=== PATIENT | male | born 1960 | race Hispanic/Latino ===

== ENCOUNTER 2020-10-01 17:57 | Emergency (ER) | payer SELFPAY ==
[~2020-10-01] VITALS: Ht 182.9 cm; Wt 79.4 kg
[2020-10-01 18:42] LABS: BASOPHILS # (AUTO) 0.1 (0.0-0.1); BASOPHILS % 0.8 % (0.0-1.0); EOSINOPHILS # (AUTO) 0.1 (0.0-0.4); HEMATOCRIT 40.7 % (38.2-49.6); HEMOGLOBIN 13.4 g/dL (14.0-18.0); LYMPHOCYTES # (AUTO) 2.9 (1.0-3.2); LYMPHOCYTES % 30.3 % (18.0-39.1); MEAN CORPUSCULAR HEMOGLOBIN 30.7 pg (28-32); MEAN CORPUSCULAR HGB CONC 32.9 g/dL (31-35); MEAN CORPUSCULAR VOLUME 93.3 fL (81-99); MONOCYTES # (AUTO) 0.8 (0.2-0.8); MONOCYTES % 8.2 % (4.4-11.3); NEUTROPHILS # (AUTO) 5.7 (2.1-6.9); NEUTROPHILS % 59.4 % (38.7-80.0); PLATELET COUNT 226 x10e3/uL (140-360); RED BLOOD COUNT 4.36 x10e6/uL (4.3-5.7); RED CELL DISTRIBUTION WIDTH 12.8 % (11.7-14.4)
[2020-10-01 18:52] LABS: INR 0.94; PROTHROMBIN TIME 13.1 seconds (11.9-14.5)
[2020-10-01 19:02] LABS: ALBUMIN 3.9 g/dL (3.5-5.0); ANION GAP 15.5 mmol/L (8-16); CALCIUM 9.4 mg/dL (8.4-10.2); CREATININE, SERUM 1.24 mg/dL (0.72-1.25); POTASSIUM 4.5 mmol/L (3.5-5.1)
[2020-10-01 20:59] VITALS: BP 169/71
== END 2020-10-01 21:02 | disposition home or self-care (01) ==
LOC: ER 19:59
DX: I69.320 Aphasia following cerebral infarction (principal); I10 Essential (primary) hypertension; E11.65 Type 2 diabetes mellitus with hyperglycemia
CPT/HCPCS: 36415; 70450; 80053; 84484; 85025; 85610; 93005; 99284

== ENCOUNTER 2020-10-14 19:09 | Emergency (ER) | payer SELFPAY ==
[~2020-10-14] VITALS: Ht 182.9 cm; Wt 79.4 kg
[2020-10-14 20:13] LABS: BASOPHILS # (AUTO) 0.1 (0.0-0.1); BASOPHILS % 1.1 % (0.0-1.0); EOSINOPHILS # (AUTO) 0.1 (0.0-0.4); EOSINOPHILS % 0.8 % (0.0-6.0); HEMATOCRIT 46.3 % (38.2-49.6); HEMOGLOBIN 15.1 g/dL (14.0-18.0); LYMPHOCYTES # (AUTO) 2.5 (1.0-3.2); LYMPHOCYTES % 26.2 % (18.0-39.1); MEAN CORPUSCULAR HGB CONC 32.6 g/dL (31-35); MEAN CORPUSCULAR VOLUME 95.1 fL (81-99); MONOCYTES # (AUTO) 0.8 (0.2-0.8); MONOCYTES % 8.7 % (4.4-11.3); NEUTROPHILS % 62.9 % (38.7-80.0); PLATELET COUNT 216 x10e3/uL (140-360); RED BLOOD COUNT 4.87 x10e6/uL (4.3-5.7); RED CELL DISTRIBUTION WIDTH 12.8 % (11.7-14.4)
[2020-10-14 20:30] LABS: AMYLASE 145 U/L (25-125); LIPASE 68 U/L (8-78)
[2020-10-14 20:32] LABS: ALANINE AMINOTRANSFERASE 14 IU/L (0-55); ALBUMIN 4.5 g/dL (3.5-5.0); ALBUMIN/GLOBULIN RATIO 1.2 (0.8-2.0); ALKALINE PHOSPHATASE 78 IU/L (40-150); ANION GAP 21.7 mmol/L (8-16); BLOOD UREA NITROGEN 40 mg/dL (7-26); BUN/CREATININE RATIO 30 (6-25); CALCIUM 10.1 mg/dL (8.4-10.2); CARBON DIOXIDE 24 mmol/L (22-29); CHLORIDE 104 mmol/L (98-107); CREATINE KINASE 65 IU/L (30-200); CREATININE, SERUM 1.34 mg/dL (0.72-1.25); EST GLOMERULAR FILTRATION RATE 54 ML/MIN (60-); GLUCOSE 156 mg/dL (74-118); POTASSIUM 4.7 mmol/L (3.5-5.1); SODIUM 145 mmol/L (136-145)
[2020-10-14] MEDS ORDERED: IOPAMIDOL 370 MG/ML 200 ML INFUS..BTL INJ ONE (20:57)
[2020-10-14] MEDS ORDERED: SODIUM CHLORIDE 0.9% 50ML 50 ML ONE (20:57)
[2020-10-14] MEDS ORDERED: SODIUM CHLORIDE 0.9% 1000ML 1,000 ML IV ONE (21:15)
[2020-10-14] MEDS ORDERED: SODIUM CHLORIDE 0.9% 1000ML 1,000 ML ONE (21:21)
[2020-10-14 23:51] LABS: CLARITY,URINE CLEAR (CLEAR); COLOR,URINE YELLOW (YELLOW); LEUKOCYTE ESTERASE ,URINE NEGATIVE (NEGATIVE); NITRITE,URINE NEGATIVE (NEGATIVE)
[2020-10-14 23:52] LABS: KETONES,URINE 1+ (NEGATIVE); PROTEIN,URINE DIPSTICK 2+ (NEGATIVE); URINE UROBILINOGEN 0.2 mg/dL (0.2 - 1)
[2020-10-14 23:53] VITALS: BP 154/96
[2020-10-15] LABS: BACTERIA,URINE RARE /HPF; EPITHELIAL CELLS,URINE FEW /LPF
== END 2020-10-15 | disposition home or self-care (01) ==
LOC: ER 19:45
DX: I69.921 Dysphasia following unspecified cerebrovascular disease (principal); E86.0 Dehydration; R94.31 Abnormal electrocardiogram [ECG] [EKG]; I10 Essential (primary) hypertension; E11.65 Type 2 diabetes mellitus with hyperglycemia
CPT/HCPCS: 36415; 70491; 71260; 74177; 80053; 81001; 82150; 82550; 82553; 83690; 84484; 85025; 99284; J7030; Q9967; 93005

== ENCOUNTER 2021-12-29 22:11 | Emergency (ER) | payer MEDICARE, OTHER ==
[~2021-12-29] VITALS: Ht 182.9 cm; Wt 79.4 kg
== END 2021-12-29 23:27 | disposition home or self-care (01) ==
LOC: ER 22:30
DX: M25.551 Pain in right hip (principal); W22.8XXA Striking against or struck by other objects, initial encounter; Y93.01 Activity, walking, marching and hiking; Y92.89 Other specified places as the place of occurrence of the external cause; I10 Essential (primary) hypertension; E11.9 Type 2 diabetes mellitus without complications; Z86.73 Personal history of transient ischemic attack (TIA), and cerebral infarction without residual deficits; Z95.1 Presence of aortocoronary bypass graft
CPT/HCPCS: 99283

== ENCOUNTER 2022-05-25 11:50 | Inpatient (IN) | payer MEDICARE ==
[~2022-05-25] VITALS: Ht 182.9 cm; Wt 79.4 kg
[2022-05-25 12:38] LABS: BASOPHILS # (AUTO) 0.1 (0.0-0.1); BASOPHILS % 0.5 % (0.0-1.0); EOSINOPHILS # (AUTO) 0.1 (0.0-0.4); EOSINOPHILS % 0.6 % (0.0-6.0); HEMATOCRIT 39.8 % (38.2-49.6); HEMOGLOBIN 12.9 g/dL (14.0-18.0); LYMPHOCYTES # (AUTO) 2.2 (1.0-3.2); LYMPHOCYTES % 14.5 % (18.0-39.1); MEAN CORPUSCULAR HEMOGLOBIN 31.9 pg (28-32); MEAN CORPUSCULAR HGB CONC 32.4 g/dL (31-35); MEAN CORPUSCULAR VOLUME 98.3 fL (81-99); MONOCYTES # (AUTO) 0.8 (0.2-0.8); NEUTROPHILS # (AUTO) 11.9 (2.1-6.9); NEUTROPHILS % 78.3 % (38.7-80.0); PLATELET COUNT 272 x10e3/uL (140-360); RED BLOOD COUNT 4.05 x10e6/uL (4.3-5.7); RED CELL DISTRIBUTION WIDTH 12.3 % (11.7-14.4)
[2022-05-25 12:59] LABS: ALBUMIN 4.3 g/dL (3.5-5.0); ALBUMIN/GLOBULIN RATIO 1.3 (0.8-2.0); ANION GAP 17.2 mmol/L (8-16); CALCIUM 9.9 mg/dL (8.4-10.2); CREATININE, SERUM 1.32 mg/dL (0.72-1.25); POTASSIUM 4.2 mmol/L (3.5-5.1)
[2022-05-25] MEDS ORDERED: DEXTROSE 5%/0.45% SOD CHL 1,000 ML IV ONE (14:45)
[2022-05-25] MEDS ORDERED: Morphine 4mg INJECTION 4 MG/ML INJ IV PRN ×2 (15:15→22:45)
[2022-05-25 15:29] LABS: CLARITY,URINE SL CLOUDY (CLEAR); COLOR,URINE AMBER (YELLOW)
[2022-05-25 15:30] LABS: LEUKOCYTE ESTERASE ,URINE NEGATIVE (NEGATIVE); NITRITE,URINE NEGATIVE (NEGATIVE); PROTEIN,URINE DIPSTICK 2+ (NEGATIVE)
[2022-05-25 15:31] LABS: KETONES,URINE TRACE (NEGATIVE); URINE UROBILINOGEN 0.2 mg/dL (0.2 - 1)
[2022-05-25 15:46] LABS: BACTERIA,URINE MODERATE /HPF; WBC,URINE (MAN) 0-5 /HPF (0-5)
[2022-05-25 15:48] LABS: EPITHELIAL CELLS,URINE FEW /LPF
[2022-05-25 18:22] VITALS: BP 131/94
[2022-05-25 18:32] VITALS: BP 131/94
[2022-05-25 20:00] VITALS: BP 161/97
[2022-05-25] MEDS ORDERED: HEPARIN SOD (PORCINE) 5,000 UNIT/ML VIAL SC ONE (21:00)
[2022-05-25 21:15] VITALS: BP 161/97
[2022-05-25 22:00] LABS: INR 0.99
[2022-05-25] MEDS ORDERED: ACTOS15 MG PO (22:03)
[2022-05-25] MEDS ORDERED: ASPIRIN81 MG PO (22:03)
[2022-05-25] MEDS ORDERED: METFORMIN HCL850 MG PO (22:03)
[2022-05-25] MEDS ORDERED: LEVETIRACETAM500 MG PO (22:04)
[2022-05-25] MEDS ORDERED: CARVEDILOL3.125 MG PO (22:04)
[2022-05-25] MEDS ORDERED: LIPITOR20 MG PO (22:05)
[2022-05-25] MEDS ORDERED: LISINOPRIL5 MG PO (22:05)
[2022-05-25] MEDS ORDERED: CLOPIDOGREL75 MG PO (22:05)
[2022-05-25] MEDS ORDERED: HYDRALAZINE HCL 20 MG/ML VIAL IV PRN (22:45)
[2022-05-25] MEDS ORDERED: METOPROLOL TARTRATE INJ 1 MG/ML VIAL IV PRN (22:45)
[2022-05-25] MEDS ORDERED: DEXTROSE 50% SYRINGE 50 ML IV PRN (22:45)
[2022-05-25] MEDS: INSULIN LISPRO 100 UNIT/1 ML 3ML VIAL SQ SCH (22:45)
[2022-05-25] MEDS: FAMOTIDINE 20 MG/2 ML VIAL IV SCH (23:35)
[2022-05-25] MEDS: METOPROLOL TARTRATE 25 MG TAB PO SCH (23:36)
[2022-05-25] MEDS: SODIUM CHLORIDE 0.45% 1,000 ML IV SCH (23:40)
[2022-05-26] VITALS (7 sets, daily range): BP systolic 111–170; BP diastolic 58–90
[2022-05-26 05:00] LABS: BASOPHILS # (AUTO) 0.1 (0.0-0.1); BASOPHILS % 0.5 % (0.0-1.0); EOSINOPHILS % 0.3 % (0.0-6.0); HEMATOCRIT 34.6 % (38.2-49.6); HEMOGLOBIN 11.8 g/dL (14.0-18.0); LYMPHOCYTES # (AUTO) 2.4 (1.0-3.2); LYMPHOCYTES % 18.8 % (18.0-39.1); MEAN CORPUSCULAR HEMOGLOBIN 31.8 pg (28-32); MEAN CORPUSCULAR HGB CONC 34.1 g/dL (31-35); MEAN CORPUSCULAR VOLUME 93.3 fL (81-99); MONOCYTES # (AUTO) 1.3 (0.2-0.8); MONOCYTES % 10.2 % (4.4-11.3); NEUTROPHILS % 69.6 % (38.7-80.0); PLATELET COUNT 215 x10e3/uL (140-360); RED BLOOD COUNT 3.71 x10e6/uL (4.3-5.7); RED CELL DISTRIBUTION WIDTH 12.5 % (11.7-14.4)
[2022-05-26 05:09] LABS: INR 0.98; PROTHROMBIN TIME 13.9 seconds (11.9-14.5)
[2022-05-26 05:20] LABS: CALCIUM 8.9 mg/dL (8.4-10.2); CREATININE, SERUM 1.08 mg/dL (0.72-1.25)
[2022-05-26] MEDS: METOPROLOL TARTRATE 25 MG TAB PO SCH ×3 (05:45→21:10)
[2022-05-26] MEDS: INSULIN LISPRO 100 UNIT/1 ML 3ML VIAL SQ SCH ×4 (07:30→21:00)
[2022-05-26] MEDS: SODIUM CHLORIDE 0.45% 1,000 ML IV SCH ×2 (08:45→21:11)
[2022-05-26] MEDS: FAMOTIDINE 20 MG/2 ML VIAL IV SCH ×2 (09:19→16:30)
[2022-05-26] MEDS ORDERED: SUGAMMADEX SODIUM 200 MG/2 ML VIAL IV ONE ×2 (12:39→16:03)
[2022-05-26] MEDS ORDERED: ROCURONIUM BROMIDE 10 MG/ML 5ML VIAL IV ONE (12:39)
[2022-05-26] MEDS ORDERED: ONDANSETRON HCL INJ 2MG/ML 2ML 2 MG/ML VIAL ONE (12:39)
[2022-05-26] MEDS ORDERED: SEVOFLURANE INHAL SOLN 250 ML PEN BTL ONE (12:39)
[2022-05-26] MEDS ORDERED: LIDOCAINE HCL 2% LOCAL INJ 5 ML SDV VIAL INJ ONE (12:39)
[2022-05-26] MEDS ORDERED: PROPOFOL IV EMULSION 10 MG/ML 20 ML VIAL ONE (12:39)
[2022-05-26] MEDS ORDERED: FENTANYL CITRATE/PF 100MCG/2 ML INJ ONE ×2 (13:15→20:14)
[2022-05-26] MEDS ORDERED: MIDAZOLAM HCL 2 MG/2 ML VIAL ONE (13:15)
[2022-05-26] MEDS ORDERED: ROPIVACAINE 246.25 MG, EPINEPHRINE HCL 1:1000 1ML 0.5 MG, CLONIDINE HCL 0.08 MG, KETORO... INJ ONE ×5 (14:30)
[2022-05-26] MEDS ORDERED: TRANEXAMIC ACID 20 ML ONE (14:51)
[2022-05-26] MEDS ORDERED: Vancomycin IV 1 GM VIAL ONE ×2 (14:51→18:42)
[2022-05-26] MEDS ORDERED: Vancomycin IV 500 MG ONE ×2 (14:51→19:10)
[2022-05-26] MEDS ORDERED: SODIUM CHLORIDE 0.9% 250ML 250 ML ONE (15:51)
[2022-05-27] VITALS (7 sets, daily range): BP systolic 96–135; BP diastolic 51–69
[2022-05-27] MEDS: SODIUM CHLORIDE 0.45% 1,000 ML IV SCH (04:00)
[2022-05-27 05:35] LABS: BASOPHILS # (AUTO) 0.1 (0.0-0.1); BASOPHILS % 0.4 % (0.0-1.0); EOSINOPHILS % 0.3 % (0.0-6.0); HEMOGLOBIN 10.7 g/dL (14.0-18.0); LYMPHOCYTES # (AUTO) 1.4 (1.0-3.2); LYMPHOCYTES % 11.9 % (18.0-39.1); MEAN CORPUSCULAR HEMOGLOBIN 31.6 pg (28-32); MEAN CORPUSCULAR HGB CONC 33.4 g/dL (31-35); MEAN CORPUSCULAR VOLUME 94.4 fL (81-99); MONOCYTES # (AUTO) 1.2 (0.2-0.8); MONOCYTES % 10.4 % (4.4-11.3); NEUTROPHILS # (AUTO) 9.2 (2.1-6.9); NEUTROPHILS % 76.4 % (38.7-80.0); PLATELET COUNT 180 x10e3/uL (140-360); RED BLOOD COUNT 3.39 x10e6/uL (4.3-5.7); RED CELL DISTRIBUTION WIDTH 12.7 % (11.7-14.4)
[2022-05-27] MEDS: METOPROLOL TARTRATE 25 MG TAB PO SCH ×3 (05:52→22:44)
[2022-05-27 05:53] LABS: CALCIUM 8.1 mg/dL (8.4-10.2); CREATININE, SERUM 1.15 mg/dL (0.72-1.25)
[2022-05-27] MEDS: ASPIRIN 325 MG TAB PO SCH (09:25)
[2022-05-27] MEDS: FAMOTIDINE 20 MG/2 ML VIAL IV SCH ×2 (09:26→17:27)
[2022-05-27] MEDS: INSULIN LISPRO 100 UNIT/1 ML 3ML VIAL SQ SCH ×4 (10:22→20:36)
[2022-05-27] MEDS: SENNA-S TABLET PO SCH (17:27)
[2022-05-27] MEDS: POLYETHYLENE GLYCOL 3350 17 GM PACK PO SCH (17:27)
[2022-05-28] VITALS (8 sets, daily range): BP systolic 100–155; BP diastolic 62–73
[2022-05-28 06:09] LABS: BASOPHILS # (AUTO) 0.1 (0.0-0.1); BASOPHILS % 0.6 % (0.0-1.0); EOSINOPHILS % 0.2 % (0.0-6.0); HEMATOCRIT 29.5 % (38.2-49.6); HEMOGLOBIN 9.9 g/dL (14.0-18.0); LYMPHOCYTES # (AUTO) 1.9 (1.0-3.2); LYMPHOCYTES % 21.1 % (18.0-39.1); MEAN CORPUSCULAR HEMOGLOBIN 31.7 pg (28-32); MEAN CORPUSCULAR HGB CONC 33.6 g/dL (31-35); MEAN CORPUSCULAR VOLUME 94.6 fL (81-99); MONOCYTES # (AUTO) 1.2 (0.2-0.8); MONOCYTES % 13.7 % (4.4-11.3); NEUTROPHILS # (AUTO) 5.8 (2.1-6.9); PLATELET COUNT 163 x10e3/uL (140-360); RED BLOOD COUNT 3.12 x10e6/uL (4.3-5.7); RED CELL DISTRIBUTION WIDTH 12.8 % (11.7-14.4)
[2022-05-28] MEDS: METOPROLOL TARTRATE 25 MG TAB PO SCH ×3 (06:14→21:39)
[2022-05-28 06:29] LABS: ANION GAP 14.7 mmol/L (8-16); CALCIUM 8.4 mg/dL (8.4-10.2); CREATININE, SERUM 1.24 mg/dL (0.72-1.25); POTASSIUM 3.7 mmol/L (3.5-5.1)
[2022-05-28] MEDS: INSULIN LISPRO 100 UNIT/1 ML 3ML VIAL SQ SCH ×4 (07:30→21:37)
[2022-05-28] MEDS: FAMOTIDINE 20 MG/2 ML VIAL IV SCH ×2 (07:30→16:42)
[2022-05-28] MEDS: ASPIRIN 325 MG TAB PO SCH (09:45)
[2022-05-28] MEDS: SENNA-S TABLET PO SCH ×2 (09:45→16:42)
[2022-05-28] MEDS: POLYETHYLENE GLYCOL 3350 17 GM PACK PO SCH ×2 (09:45→16:42)
[2022-05-29] VITALS (7 sets, daily range): BP systolic 107–145; BP diastolic 62–76
[2022-05-29] MEDS: METOPROLOL TARTRATE 25 MG TAB PO SCH ×3 (06:01→21:23)
[2022-05-29] MEDS: SENNA-S TABLET PO SCH ×2 (10:03→17:00)
[2022-05-29] MEDS: POLYETHYLENE GLYCOL 3350 17 GM PACK PO SCH ×2 (10:03→17:00)
[2022-05-29] MEDS: FAMOTIDINE 20 MG/2 ML VIAL IV SCH ×2 (10:03→17:34)
[2022-05-29] MEDS: ASPIRIN 325 MG TAB PO SCH (10:03)
[2022-05-29] MEDS: INSULIN LISPRO 100 UNIT/1 ML 3ML VIAL SQ SCH ×4 (11:05→21:29)
[2022-05-29] MEDS: ENOXAPARIN SOD INJ 40 MG/0.4 ML SYR SC SCH (17:33)
[2022-05-30] VITALS (8 sets, daily range): BP systolic 110–138; BP diastolic 55–81
[2022-05-30 05:34] LABS: BASOPHILS % 0.5 % (0.0-1.0); EOSINOPHILS # (AUTO) 0.3 (0.0-0.4); EOSINOPHILS % 3.9 % (0.0-6.0); LYMPHOCYTES # (AUTO) 1.7 (1.0-3.2); LYMPHOCYTES % 20.3 % (18.0-39.1); MEAN CORPUSCULAR HEMOGLOBIN 31.5 pg (28-32); MEAN CORPUSCULAR HGB CONC 32.3 g/dL (31-35); MEAN CORPUSCULAR VOLUME 97.8 fL (81-99); MONOCYTES # (AUTO) 1.1 (0.2-0.8); MONOCYTES % 12.7 % (4.4-11.3); NEUTROPHILS # (AUTO) 5.3 (2.1-6.9); NEUTROPHILS % 62.2 % (38.7-80.0); PLATELET COUNT 217 x10e3/uL (140-360); RED BLOOD COUNT 3.17 x10e6/uL (4.3-5.7); RED CELL DISTRIBUTION WIDTH 11.7 % (11.7-14.4)
[2022-05-30 06:02] LABS: ANION GAP 14.4 mmol/L (8-16); POTASSIUM 3.4 mmol/L (3.5-5.1)
[2022-05-30] MEDS: METOPROLOL TARTRATE 25 MG TAB PO SCH ×3 (06:15→22:09)
[2022-05-30] MEDS: POLYETHYLENE GLYCOL 3350 17 GM PACK PO SCH ×2 (08:59→16:35)
[2022-05-30] MEDS: SENNA-S TABLET PO SCH ×2 (08:59→16:34)
[2022-05-30] MEDS: ASPIRIN 325 MG TAB PO SCH (08:59)
[2022-05-30] MEDS: FAMOTIDINE 20 MG/2 ML VIAL IV SCH ×2 (09:00→16:35)
[2022-05-30] MEDS: INSULIN LISPRO 100 UNIT/1 ML 3ML VIAL SQ SCH ×4 (09:06→22:13)
[2022-05-30] MEDS ORDERED: POTASSIUM CHLORIDE 10MEQ EA PO ONE (10:15)
[2022-05-30] MEDS: ENOXAPARIN SOD INJ 40 MG/0.4 ML SYR SC SCH (16:35)
[2022-05-31] VITALS: BP 152/88
[2022-05-31] MEDS: METOPROLOL TARTRATE 25 MG TAB PO SCH ×2 (05:59→14:33)
[2022-05-31 08:02] VITALS: BP 144/82
[2022-05-31] MEDS: POLYETHYLENE GLYCOL 3350 17 GM PACK PO SCH ×2 (08:25→17:00)
[2022-05-31] MEDS: SENNA-S TABLET PO SCH ×2 (08:25→17:00)
[2022-05-31] MEDS ORDERED: MAGNESIUM HYDROXIDE 30 ML UDC PO PRN (08:30)
[2022-05-31] MEDS ORDERED: HYDRALAZINE HCL 25 MG TAB PO PRN (08:30)
[2022-05-31] MEDS ORDERED: HYDROCODONE/APAP 7.5MG-325MG 1 EA TAB PO PRN (08:30)
[2022-05-31] MEDS: INSULIN LISPRO 100 UNIT/1 ML 3ML VIAL SQ SCH ×3 (08:36→17:10)
[2022-05-31 08:43] VITALS: BP 144/82
[2022-05-31 12:00] VITALS: BP 123/75
[2022-05-31] MEDS ORDERED: FAMOTIDINE 20 MG TAB PO SCH (16:30)
[2022-05-31 16:38] VITALS: BP 116/69
[2022-05-31 18:32] VITALS: BP 116/69
[2022-05-31] MEDS ORDERED: APIXAB 2.5 MG TABLET PO SCH (21:00)
== END 2022-05-31 21:38 | DRG 522 ==
LOC: ER 11:56 → ERHOLD 14:26 → MED/SURG3 17:22
PROVIDERS: ADMIT Internal Medicine; ATTEND Internal Medicine
PROC: 0SRR019 Replacement of Right Hip Joint, Femoral Surface with Metal Synthetic Substitute, Cemented, Open Approach (ICD-10-PCS; principal; 2022-05-26 17:55)
DX: S72.031A Displaced midcervical fracture of right femur, initial encounter for closed fracture (principal); S42.414A Nondisplaced simple supracondylar fracture without intercondylar fracture of right humerus, initial encounter for closed fracture; I69.351 Hemiplegia and hemiparesis following cerebral infarction affecting right dominant side; N39.0 Urinary tract infection, site not specified; I69.320 Aphasia following cerebral infarction; I10 Essential (primary) hypertension; E11.9 Type 2 diabetes mellitus without complications; E78.5 Hyperlipidemia, unspecified; I25.10 Atherosclerotic heart disease of native coronary artery without angina pectoris; W18.30XA Fall on same level, unspecified, initial encounter; Z95.1 Presence of aortocoronary bypass graft; Z99.3 Dependence on wheelchair; Y92.012 Bathroom of single-family (private) house as the place of occurrence of the external cause; Z20.822 Contact with and (suspected) exposure to COVID-19; Z79.82 Long term (current) use of aspirin; Z79.84 Long term (current) use of oral hypoglycemic drugs
CPT/HCPCS: 36415; 51700; 70450; 71045; 72170; 80048; 80053; 81001; 82948; 85025; 85610; 85730; 86850; 86900; 93005; 93306; 99251; 99284; C1776; J0171; J0360; J0690; J0696; J1644; J1650; J1885; J2001; J2250; J2270; J2405; J2795; J3010; J3370; J7050